=== PATIENT | female | born 1965 ===

== ENCOUNTER 2018-01-21 07:48 | Day surgery (SDC) | payer OTHER ==
[2018-01-21] MEDS ORDERED: Lactated Ringer's 500 ML IV ONE (08:40)
[2018-01-21 09:18] VITALS: BMI 31.8
[2018-01-21] MEDS ORDERED: Propofol 10 mg/ml Inj (20 ML) ONE (10:24)
[2018-01-21 10:51] VITALS: TEMP 97
[2018-01-21 11:09] VITALS: BP 110/64; PULSE 68; RESP 18; O2SAT 96
== END 2018-01-21 11:09 | disposition home or self-care (01) ==
LOC: H.ENDO 07:48
PROVIDERS: ATTEND Internal Medicine Gastroenterology
DX: Z12.11 Encounter for screening for malignant neoplasm of colon (principal); E11.9 Type 2 diabetes mellitus without complications; E78.5 Hyperlipidemia, unspecified; I10 Essential (primary) hypertension; K64.8 Other hemorrhoids
CPT/HCPCS: 45378; 82948; J2001; J2704; J7120